=== PATIENT | female | born 1990 | race Caucasian/White ===

== ENCOUNTER → 2019-10-03 15:09 | Outpatient (CLI) | payer BC, SELFPAY ==
--- NOTE | ~2019-10-03 | US_ITS ---
EXAMINATION: US OB >= 14 weeks Fetus DATE: 10/03/2019 15:14 INDICATION: Assess anatomy during second trimester of . TECHNIQUE: Multiple obstetric sonographic images performed. FINDINGS: There is a single living fetus in vertex presentation. The placenta is posterior and not low-lying. Subjectively normal amniotic fluid volume. heart rate of 167 beats per minute. The following anatomy was identified as normal: Ventricles, choroid plexus, falx and cava septum pellucidum Cerebellum and cisterna magna Nuchal fold Spine Four-chamber heart view Diaphragm Stomach Kidneys Bladder 3 vessel cord and cord insertion Bilateral upper and lower extremities including hands and feet The following biometric data were obtained: BPD: 4.3 cm -> 19 weeks 0 days Head circumference: 16.8 cm -> 19 weeks 3 days Abdominal circumference: 13.5 cm -> 19 weeks 0 days Femur length: 2.8 cm -> 18 weeks 4 days These measurements are concordant. Head circumference to abdominal circumference ratio: 1.24 (normal range 1.09-1.26). Estimated weight: 261 g (+/-) 39 g. or 9 oz. (+/-) 1 oz. IMPRESSION: 1. Single living fetus with vertex presentation with heart rate of 167 bpm. 2. Gestational age by ultrasound of 19 weeks 0 day(s) (+/-) 1 week 2 day(s) with ultrasound estimat ed date of delivery (MANGO) of 02/27/2020. Estimated weight is 46th percentile by Hadlock criteria when 02/28/2020 is used as the MANGO. Please correlate with clinical information or earlier ultrasounds f or most accurate MANGO. 3. Normal survey. Reviewed, dictated and finalized at location A. E [employer] IMPRESSION: 1. Single living fetus with vertex presentation with heart rate of 167 b pm. 2. Gestational age by ultrasound of 19 weeks 0 day(s) (+/-) 1 week 2 day(s) w ith ultrasound estimated date of delivery (MANGO) of 02/27/2020. Estimated we ight is 46th percentile by Hadlock criteria when 02/28/2020 is used as the MANGO. P lease correlate with clinical information or earlier ultrasounds for most accur ate MANGO. 3. Normal survey.
== END ==
PROVIDERS: Visit Provider Obstetrics & Gynecology
DX: Z36.9 Encounter for antenatal screening, unspecified (principal); Z3A.19 19 weeks gestation of pregnancy
CPT/HCPCS: 76805

== ENCOUNTER → 2022-04-10 15:50 | Outpatient (CLI) | payer OTHER, SELFPAY ==
--- NOTE | ~2022-04-10 | US_ITS ---
EXAMINATION: US OB /maternal detail DATE: 04/10/2022 16:42 INDICATION: Encounter for screening. TECHNIQUE: Real-time ultrasound of the pelvis was performed. COMPARISON: None. FINDINGS: There is a single living fetus in breech presentation. The placenta is posterior, 3.8 cm from the ce rvix. The cervical length is 5.2 cm on transabdominal images. heart rate is 142 beats per minut e (bpm). The amniotic fluid volume is subjectively normal. The following biometric data were obtained: Biparietal diameter (BPD): 4.6 cm; head circumference (HC): 17.5 cm; abdominal circumference (AC): 15 .7 cm; femur length (FL): 2.9 cm. These measurements are concordant. Estimated weight is 328 g +/- 49 g, which correlates with the 39th percentile when 08/27/22 is us ed as estimated date of delivery. As single measurements, these parameters are each equal to the following estimated gestational ages w ith ranges of +/- 2 standard deviations: BPD: 19 weeks 5 days (18 weeks 0 days - 21 weeks 3 days). HC: 20 weeks 0 days (18 weeks 4 days - 21 weeks 3 days). AC: 20 weeks 6 days (18 weeks 6 days - 23 weeks 0 days). FL: 19 weeks 0 days (17 weeks 2 days - 20 weeks 6 days). estimated gestational age based solely on measurements from this exam is 19 weeks 6 days +/- 1 weeks 3 days. The cerebral ventricles, cerebellum, cisterna magna, nuchal fold, lip, and visualized portions of the spine are normal. The heart is normal. The diaphragm, stomach, kidneys, and bladder are normal. Ther e are two umbilical arteries to yield a 3-vessel cord. The cord insertion is normal. IMPRESSION: 1. Single living fetus in breech presentation. 2. Estimated weight is 328 g +/- 49 g, which correlates with the 39th percentile when 08/27/22 i s used as estimated date of delivery. 3. Normal anatomic survey. Reviewed, dictated and finalized at location A. IMPRESSION: 1. Single living fetus in breech presentation. 2. Estimated weight is 328 g +/- 49 g, which correlates with the 39th pe rcentile when 08/27/22 is used as estimated date of delivery. 3. Normal anatomic survey.
== END ==
PROVIDERS: PCP Obstetrics & Gynecology Gynecologic Oncology; Visit Provider Obstetrics & Gynecology Gynecologic Oncology
DX: Z36.9 Encounter for antenatal screening, unspecified (principal); Z3A.19 19 weeks gestation of pregnancy
CPT/HCPCS: 76805

== ENCOUNTER 2024-02-11 11:44 | Outpatient (CLI) | payer BC, SELFPAY ==
--- NOTE | ~2024-02-11 | MMUS_ITS ---
EXAMINATION: MM diagnostic ruthie BI w rachel, US breast BI complete HISTORY: Palpable right breast mass TECHNIQUE: Additional 3-D tomosynthesis images of the breasts were performed and synthetic 2-D images were generated. CAD analysis was submitted and interpreted. High resolution bilateral complete breas t ultrasound was performed. COMPARISON: None BREAST PARENCHYMAL COMPOSITION: Not dense: There are scattered areas of fibroglandular density. FINDINGS: MAMMOGRAPHIC FINDINGS: Not dense: There are scattered areas of fibroglandular density. There are no suspicious masses, calci fications or architectural distortion in either breast to suggest malignancy. ULTRASOUND: Complete bilateral US of all 4 quadrants of the breasts and retroareolar region was reviewed. Normal heterogeneous echotexture without focal solid or cystic mass. IMPRESSION: 1. No evidence for malignancy in either breast. 2. Recommend routine screening examination beginning at age 40. BI-RADS Category 1: Negative Reviewed, dictated and finalized at location B. IMPRESSION: 1. No evidence for malignancy in either breast. 2. Recommend routine screening examination beginning at age 40. BI-RADS Category 1: Negative
== END 2024-02-11 11:45 | disposition home or self-care (01) ==
PROVIDERS: PCP Obstetrics & Gynecology Gynecologic Oncology
DX: N63.10 Unspecified lump in the right breast, unspecified quadrant (principal)
CPT/HCPCS: 76641; 77062; 77066; G0279